=== PATIENT | male | born 1965 ===

== ENCOUNTER 2022-07-02 04:34 | Emergency (ER) | payer BC, OTHER ==
--- NOTE | 2022-07-02 04:44 | ED Physician Documentation ---
PD HPI UPPER EXT INJURY - Stated complaint Stated Complaint: RT FINGER INJ - History obtained from History obtained from: Patient - Additonal information Additional information: Patient is a 56-year-old male presenting for evaluation of injury to his right middle finger. This occurred this morning while he was loading his horse trailer.He accidentally caught his finger The area of the trailer which caused a distal amputation of the digit. He is right-hand dominant. He does not take a blood thinner. He believes his tetanus is up-to-date but is unsure of the last time he had 1.He denies injuries elsewhere. Review of Systems Constitutional: denies: Fever Cardiac: denies: Chest pain / pressure Respiratory: denies: Dyspnea GI: denies: Abdominal Pain Skin: reports: Laceration (s) Musculoskeletal: reports: Extremity pain PD PAST MEDICAL HISTORY - Present Medications Home Medications: Ambulatory Orders Medication Instructions Recorded Confirmed No Known Home Medications 07/02/22 07/02/22 - Allergies Allergies/Adverse Reactions: Allergies Allergy/AdvReac Type Severity Reaction Status Date / Time No Known Drug Allergies Allergy Verified 07/02/22 04:56 PD ED PE NORMAL - General General: Alert and oriented X 3, No acute distress, Well developed/nourished - HEENT HEENT: Atraumatic - Respiratory Respiratory: No respiratory distress - Extremities Extremities: Other (Amputation to distal R middle digit through nailbed; full ROM at DIP and PIP; remainder of digit appears well perfused) Results - Vitals Vitals: Vital Signs - 24 hr 07/02/22 07/02/22 04:49 06:00 Temperature 97.8 C H 36.8 C Heart Rate 66 76 Respiratory 15 17 Rate Blood Pressure 114/64 124/83 H O2 Saturation 100 97 Oxygen O2 Source Room air PD Medical Decision Making - ED course Complexity details: reviewed results, re-evaluated patient, d/w patient, d/w senior health consultant ED course: 0509 - D/W Dr. Carter (Ortho media production operator). He will come to see the patient and will likely do a revision amputation. Requests IV Ancef 0644 - Pt has been seen by the orthopedic surgeon. After extensive conversation with our surgeon patient has declined repair here. He prefers to drive himself to a hospital closer to [place] where he lives And states he feels more comfortable at a larger hospital. Patient has been placed into a splint and a dressing by the surgeon. He does not have a specific hospital in mind that he would like to go to. Patient understands that he should have this taken care of urgently. He does not want us to try and arrange transfer for him. He does understand that repair of his injury is within the scope of this hospital and that he has declined Repair by an attending orthopedic surgeon. Patient understands the risks of leaving which include pain, infection, bleeding. He also understands he can return to our hospital at anytime. Pt presenting for evaluation of tramautic amputation of his R middle finger. VSS. No other injuries. TDAP and ANcef given. D/W Dr. Carter who was media production operator for Ortho overnight and he came to see the patient in the ED for revision and closure of the patient's wound. After being seen by surgeon, pt opted to leave AMA as he stated he feels more comfortable at a larger hospital and one closer to where he usually lives. He understands the risks of his choice and appears to have capability to make his own medical decisions. He is not intoxicated. Departure - Departure Disposition: 07 Against Medical Advice Clinical Impression: Finger amputation, traumatic Qualifiers: Encounter type: initial encounter Qualified Code(s): S68.119A - Complete traumatic metacarpophalangeal amputation of unspecified finger, initial encounter Finger fracture, right Qualifiers: Encounter type: initial encounter Finger: middle finger Fracture type: open Phalanx: distal Fracture alignment: nondisplaced Qualified Code(s): S62.662B - Nondisplaced fracture of distal phalanx of right middle finger, initial encounter for open fracture Condition: Serious Comments: You are leaving AGAINST MEDICAL ADVICE as you did not feel comfortable with our orthopedic surgeon repairing your Finger amputation. You have received a tetanus booster and 2 g of IV Ancef. We have given you a copy of your x-rays. Our orthopedic surgeon has applied a dressing to your wound. I would recommend Going immediately to a hospital that you feel comfortable at For definitive repair of your injury. If you change your mind, you are always welcome to return to [facility] for evaluation and treatment. Discharge Date/Time: 07/02/22 06:53
[2022-07-02] MEDS ORDERED: lidocaine 1% 20 ML MDV SUBQ ONE (04:49)
[2022-07-02] MEDS ORDERED: TETANUS/DIPHTHERIA/PERTUSSIS 0.5 ML SYRINGE IM ONE (05:05)
[2022-07-02] MEDS ORDERED: ceFAZolin 2 GM in SODIUM CHLORIDE 0.9% MINIBAG 100 ML IV STA (05:16)
[2022-07-02] MEDS ORDERED: ceFAZolin 1 GM VIAL ONE (05:48)
[2022-07-02 06:24] VITALS: BP 124/83
--- NOTE | 2022-07-02 07:33 | XRAY Report ---
PROCEDURE: Finger(s) RT INDICATIONS: amputation TECHNIQUE: AP hand, 2 views of the right finger(s) acquired. COMPARISON: None FINDINGS: Partial amputation of the third distal phalanx tuft with overlying soft tissue loss. There is no osse ous fragmentation. No DIP dislocation. There are no radiodense foreign bodies in the third digit soft tissues or soft tissue gas. IMPRESSION: Bone and soft tissue amputation of the third distal phalanx. Final interpretation concordant with preliminary report. Reviewed by: Jasmyn Mayfield MD on 07/02/2022 7:32 AM PST Approved by: Jasmyn Mayfield MD on 07/02/2022 7:32 AM PST Station ID: [id number]
== END 2022-07-02 06:53 | disposition left against medical advice (07) ==
LOC: ED 04:34
DX: S68.112A Complete traumatic metacarpophalangeal amputation of right middle finger, initial encounter (principal); W23.0XXA Caught, crushed, jammed, or pinched between moving objects, initial encounter; Y93.K9 Activity, other involving animal care
CPT/HCPCS: 90471; 93005; 96365; 99284